=== PATIENT | female | born 1970 | race Caucasian/White ===

== ENCOUNTER 2018-08-24 07:04 | Day surgery (SDC) | payer BC ==
[2018-08-22 15:18] VITALS: BMI 23.8
[2018-08-24 07:38] VITALS: O2SAT 100
[2018-08-24] MEDS ORDERED: Propofol 10 mg/ml Inj (20 ML) ONE (08:45)
[2018-08-24] MEDS ORDERED: Lactated Ringer's 1,000 ML IV ONE ×2 (08:49)
--- NOTE | 2018-08-24 08:50 | CP.SDSHP ---
Same Day Surgery H & P - History Proposed Procedure: endoscopy, colonosocpy Pre-Op Diagnosis: reflux, colon screeen - Allergies Allergies: Allergies No Known Allergies Allergy (Verified 08/22/18 15:18) - Physical Exam Vital Signs: Vital Signs 08/24/18 07:24 Temperature 98.9 F Pulse Rate 73 Respiratory 19 Rate Blood Pressure 126/73 O2 Sat by Pulse 100 Oximetry Mental Status: Alert & Oriented x3 Neuro: WNL Heart: WNL Lungs: WNL GI: WNL - {Optional Preform as Required} Abdomen: WNL - Impression Impression: esophagitis, colon screen Pt. Evaluated Today:Candidate for Anesthesia & Procedure: Yes - Date & Time Date: 08/24/18 Time: 08:40 Short Stay Discharge - Short Stay Discharge Admitting Diagnosis/Reason for Visit: SCREENING / ESOPHAGEAL REFLUX Disposition: HOME/ ROUTINE
[2018-08-24 09:45] VITALS: TEMP 96.8
[2018-08-24 10:58] VITALS: RESP 19
[2018-08-24 11:00] VITALS: BP 121/83; PULSE 72
== END 2018-08-24 10:10 | disposition home or self-care (01) ==
LOC: C.ENDO 07:04
PROVIDERS: ATTEND Internal Medicine Gastroenterology
DX: Z12.11 Encounter for screening for malignant neoplasm of colon (principal); K21.9 Gastro-esophageal reflux disease without esophagitis; K20.9 Esophagitis, unspecified; K29.70 Gastritis, unspecified, without bleeding
CPT/HCPCS: 43239; 45378; 84703; 88305; J2001; J2704; J7120